=== PATIENT | female | born 1995 | race Caucasian/White ===

== ENCOUNTER 2022-06-28 03:49 | Inpatient (IN) | payer BC ==
[2022-06-28] MEDS ORDERED: Butorphanol Tartrate 1 MG/ML VIAL ONE (04:35)
[2022-06-28] MEDS ORDERED: Fentanyl 2 mcg/Bup 0.1% Cadd 100 ML ONE (04:42)
[2022-06-28 04:52] VITALS: BMI 29.2
[2022-06-28 05:03] LABS: Hemoglobin 13.6 g/dL (12.0-15.5); Mean Corpuscular HGB CONC 36.3 g/dL (32.0-36.0); Mean Corpuscular Hemoglobin 32.2 pg (27.0-33.0); Mean Corpuscular Volume 88.7 fl (81.6-98.3); Mean Platelet Volume 10.5 fl (7.4-10.4); Platelet Count 224 10x3/uL (150-450); RBC Distribution Width 13.8 % (11.5-14.5); Red Blood Cell (RBC) Count 4.23 10x6/uL (3.90-5.03)
[2022-06-28 05:32] LABS: SARS-CoV-2 NAA Rapid Test Not Detected (NotDetected)
[2022-06-28] MEDS ORDERED: Lactated Ringer's 500 ML IV PRN (05:56)
[2022-06-28] MEDS ORDERED: ePHEDrine Sulfate 50 MG/10 ML VIAL SLOW IVP PRN (05:56)
[2022-06-28] MEDS ORDERED: Ondansetron PF 4 MG/2 ML Vial IVP PRN ×2 (05:56→07:00)
[2022-06-28] MEDS ORDERED: Promethazine HCl 25 MG/ML VIAL IM PRN ×2 (05:56→07:00)
[2022-06-28] MEDS ORDERED: Acetaminophen 325 MG TAB PO PRN ×2 (05:56→20:33)
[2022-06-28] MEDS ORDERED: Naloxone HCl 0.4 mg/ml Vial IVP PRN ×2 (05:56)
[2022-06-28] MEDS ORDERED: Moisturizing Cream (Eucerin) 113 GM JAR TOP PRN (05:56)
[2022-06-28] MEDS ORDERED: diphenhydrAMINE 50 MG/ML VIAL IVP PRN (05:56)
[2022-06-28] MEDS ORDERED: Fentanyl 2 mcg/Bupivacaine 0.1% Cassette 100 ML EPIDURAL SCH (06:00)
[2022-06-28] MEDS ORDERED: Communication Order-Pharmacy FS SCH (06:00)
[2022-06-28] MEDS ORDERED: Butorphanol Tartrate 1 MG/ML VIAL SLOW IVP PRN (07:00)
[2022-06-28] MEDS ORDERED: Lactated Ringer's 1,000 ML IV SCH (07:00)
[2022-06-28] MEDS ORDERED: NS w/ Oxytocin 30 units 500 ML ONE (07:04)
[2022-06-28] MEDS ORDERED: Lidocaine 1% (PF) 30 ML VIAL SC PRN (07:15)
[2022-06-28] MEDS ORDERED: NS w/ Oxytocin 30 units 500 ML IV SCH (07:15)
[2022-06-28 08:22] LABS: Syphilis Antibody Nonreactive (Nonreactive); Syphilis Antibody Index 0.02 S/CO (<1.00 Non-Reactive)
[2022-06-28 08:23] LABS: HBSAg Index 0.17 S/CO (0-0.99); Hep B Surf Ag Non-Reactive S/CO (NonReactive)
[2022-06-28] MEDS ORDERED: Boostrix 0.5 ML (Tdap) VIAL (>/=7 yrs of age) IM ONE (11:16)
[2022-06-28] MEDS ORDERED: Milk Of Magnesia 30 ML UDCUP PO PRN (11:16)
[2022-06-28] MEDS ORDERED: diphenhydrAMINE 25 MG CAP PO PRN (11:16)
[2022-06-28] MEDS ORDERED: Preparation H Ointment 28 GM TUBE PR PRN (11:16)
[2022-06-28] MEDS ORDERED: Benzocaine-Menthol 82.5 ML CAN TOP PRN (11:16)
[2022-06-28] MEDS ORDERED: Bisacodyl 10 MG SUPP PR PRN (11:16)
[2022-06-28] MEDS ORDERED: traMADol HCl 50 MG TAB PO PRN (11:16)
[2022-06-28] MEDS ORDERED: Lanolin Ointment 7 GM TUBE TOP PRN (11:16)
[2022-06-28] MEDS ORDERED: hydrALAZINE 20 MG/ML VIAL SLOW IVP PRN (11:16)
[2022-06-28] MEDS: Ibuprofen 800 MG TAB PO SCH ×2 (13:31→21:06)
[2022-06-28] MEDS ORDERED: ePHEDrine Sulfate 50 MG/10 ML VIAL ONE (15:04)
[2022-06-28] MEDS ORDERED: Sodium Chloride 0.9% (PF) 10 ML VIAL ONE (15:04)
[2022-06-28] MEDS ORDERED: Bupivacaine/Epinephrine 0.25% 30 ML VIAL ONE (15:04)
[2022-06-28] MEDS: Docusate 100 MG CAP PO SCH (21:06)
[2022-06-29] MEDS: Ibuprofen 800 MG TAB PO SCH ×3 (05:21→21:23)
[2022-06-29] MEDS: Prenatal Vitamin 1 TAB PO SCH (13:32)
[2022-06-29] MEDS: Docusate 100 MG CAP PO SCH ×2 (13:33→21:23)
[2022-06-30] MEDS: Ibuprofen 800 MG TAB PO SCH (05:15)
[2022-06-30 07:20] LABS: Hemoglobin 10.6 g/dL (12.0-15.5)
[2022-06-30 07:50] VITALS: BP 124/61; TEMP 98.7
[2022-06-30] MEDS: Docusate 100 MG CAP PO SCH (08:02)
[2022-06-30] MEDS: Prenatal Vitamin 1 TAB PO SCH (08:02)
== END 2022-06-30 12:57 | disposition home or self-care (01) | DRG 807 ==
LOC: CSHLD/OP 03:49 → CSHLD 04:26 → CSHPP 13:00
PROVIDERS: ADMIT Obstetrics & Gynecology; ATTEND Obstetrics & Gynecology
PROC: 10E0XZZ Delivery of Products of Conception, External Approach (ICD-10-PCS; principal; 2022-06-28)
PROC: 0HQ9XZZ Repair Perineum Skin, External Approach (ICD-10-PCS; 2022-06-28)
PROC: 10907ZC Drainage of Amniotic Fluid, Therapeutic from Products of Conception, Via Natural or Artificial Opening (ICD-10-PCS; 2022-06-28)
DX: O70.0 First degree perineal laceration during delivery (principal); Z37.0 Single live birth; Z3A.39 39 weeks gestation of pregnancy; Z20.822 Contact with and (suspected) exposure to COVID-19
CPT/HCPCS: 36415; 51702; 85014; 85018; 85027; 86780; 86850; 86900; 86901; 87340; 99285; J0595; J2405; U0002